=== PATIENT | male | born 1960 | race American Indian/Alaskan Native ===

== ENCOUNTER 2017-08-04 15:41 | Emergency (ER) | payer MEDICAID ==
--- NOTE | 2017-08-04 23:08 | Emergency Department Report ---
Minor Respiratory - HPI Chief Complaint: Upper Respiratory Infection Stated Complaint: COLD SX Time Seen by Provider: 08/04/17 23:00 Duration: 3 Days Pain Location: Throat, Other (cough ) Severity: moderate Minor Respiratory: Yes Rhinorrhea, Yes Sore Throat, Yes Able to Tolerate Fluids , Yes Ear Pain, Yes Cough, Yes Sick Contacts, No Hemoptysis, No Chest Pain, No Shortness of Breath, No Fever ED Review of Systems ROS: Stated complaint: COLD SX Other details as noted in HPI Constitutional: denies: chills, fever Eyes: denies: eye pain, eye discharge, vision change ENT: ear pain, throat pain, congestion Respiratory: cough. denies: shortness of breath, wheezing Cardiovascular: denies: chest pain, palpitations Endocrine: no symptoms reported Gastrointestinal: denies: abdominal pain, nausea, vomiting, diarrhea, constipation, hematemesis, hematochezia Genitourinary: denies: urgency, dysuria Musculoskeletal: denies: back pain, joint swelling, arthralgia Skin: denies: rash, lesions Neurological: denies: headache, weakness, paresthesias Psychiatric: denies: anxiety, depression Hematological/Lymphatic: denies: easy bleeding, easy bruising ED Past Medical Hx - Past Medical History Previous Medical History?: Yes Hx Hypertension: Yes Additional medical history: high cholesterol / BACK PAIN - Surgical History Past Surgical History?: Yes Additional Surgical History: Left hand surgery - Social History Smoking Status: Former Smoker Substance Use Type: Alcohol, Prescribed - Medications Home Medications: Home Medications Medication Instructions Recorded Confirmed Last Taken Type HYDROcodone/APAP 7.5-325 [[place] 1 each PO Q6HR PRN #20 tablet 05/24/14 Unknown Rx 7.5/325 mg] HYDROcodone/APAP 5-325 [[place] 1 each PO Q6HR PRN #20 tablet 01/02/16 Unknown Rx 5/325] Ibuprofen [Motrin 600 MG tab] 600 mg PO Q8H PRN #50 tablet 01/02/16 Unknown Rx Lisinopril [Zestril TAB] 20 mg PO QDAY #30 tablet 01/02/16 Unknown Rx Cetirizine HCl [Zyrtec] 10 mg PO DAILY #30 tablet 08/04/17 Unknown Rx Codeine Phosphate/Guaifenesin 5 ml PO TID PRN #120 ml 08/04/17 Unknown Rx [Guaifenesin-Codeine Syrup] Fluticasone [Flonase] 1 spray NS QDAY #1 bottle 08/04/17 Unknown Rx Ibuprofen 800 mg PO TID PRN #30 tablet 08/04/17 Unknown Rx Minor Respiratory Exam - Exam General: Vital signs noted. No distress. Alert and acting appropriately. HEENT: Yes Pharyngeal Erythema, Yes Moist Mucous Membranes, Yes Rhinorrhea, No Pharyngeal Exudates, No Conjuctival Injection, No Frontal Tenderness, No Maxillary Tenderness Ear: Neither TM Bulge, Neither TM Erythema, Neither EAC Pain, Neither EAC Discharge Neck: No Adenopathy, No Supple Lungs: Yes Good Air Exchange, Yes Cough, No Wheezes, No Ronchi, No Stridor, No Labored Respirations, No Retractions, No Use of Accessory Muscles, No Other Abnormal Lung Sounds Heart: Yes Regular, No Murmur Abdomen: Yes Normal Bowel Sounds, No Tenderness, No Peritoneal Signs Skin: No Rash, No Edema Neurologic: Alert and oriented, no deficits. Musculoskeletal: Unremarkable. ED Course Vital Signs 08/04/17 16:01 Temperature 98.8 F Pulse Rate 109 H Respiratory 18 Rate Blood Pressure 104/78 O2 Sat by Pulse 99 Oximetry ED Medical Decision Making - Medical Decision Making pt is a s 57 y/o aam who presents for flu like symptoms cough ear & nose pain , bodyaches x 3 days pt denies fever no sob no wheezing, denies dizziness no lightheadedness pt is tolerating po intake, exam: Tms normal, nose: moderate turbinate erythema clear post nasal drip, no polyps obstruction, pharynx: moderate erythema no exudate no lesions no stidor lungs clear bilat no wheezing , cough productive clear, pt is tolerating po intake at this time, in ed eating dinner meal without n/v plan: tx for URI, pt will follow up with pcp in 2-3 days , as states he needs to get back to home and cannot wait for cxr, pt for dc to self in stable condition at this time. Critical care attestation.: If time is entered above; I have spent that time in minutes in the direct care of this critically ill patient, excluding procedure time. ED Disposition Clinical Impression: URI (upper respiratory infection) Qualifiers: URI type: unspecified viral URI Qualified Code(s): J06.9 - Acute upper respiratory infection, unspecified; B97.89 - Other viral agents as the cause of diseases classified elsewhere; B97.89 - Other viral agents as the cause of diseases classified elsewhere Disposition: DC-01 TO HOME OR SELFCARE Is pt being admited?: No Does the pt Need Aspirin: No Condition: Good Instructions: Upper Respiratory Infection (ED) Prescriptions: Cetirizine HCl [Zyrtec] 10 mg PO DAILY #30 tablet Codeine Phosphate/Guaifenesin [Guaifenesin-Codeine Syrup] 5 ml PO TID PRN #120 ml PRN Reason: Cough Fluticasone [Flonase] 1 spray NS QDAY #1 bottle Ibuprofen 800 mg PO TID PRN #30 tablet PRN Reason: Pain Referrals: KIRSTEN MOCTEZUMA MD [Primary Care Provider] - 3-5 Days Forms: Work/School Release Form(ED) Time of Disposition: 23:13
[2017-08-04] MEDS ORDERED: ROBITUSSIN PO ONE (23:12)
[2017-08-04 23:22] VITALS: BP 123/80
== END 2017-08-04 23:19 | disposition home or self-care (01) ==
LOC: ED 15:41
DX: J06.9 Acute upper respiratory infection, unspecified (principal); I10 Essential (primary) hypertension; E78.00 Pure hypercholesterolemia, unspecified; Z87.891 Personal history of nicotine dependence
CPT/HCPCS: 99282